=== PATIENT | female | born 1995 | race Caucasian/White ===

== ENCOUNTER 2023-03-25 00:31 | Emergency (ER) | payer OTHER ==
[~2023-03-25] VITALS: Ht 162.6 cm; Wt 61.2 kg
[2023-03-25 00:50] VITALS: BP 116/70; PULSE 93; RESP 16; TEMP 97.5; O2SAT 100
[2023-03-25 01:31] LABS: FLU A ANTIGEN negative (NEGATIVE); FLU B ANTIGEN negative (NEGATIVE)
[2023-03-25] MEDS: guaiFENesin DM 200/20 MG-10 ML 10 ML UDC PO ONE (01:55)
[2023-03-25] MEDS: ACETAMINOPHEN EXTRA STRENGTH 500 MG TAB PO ONE (01:56)
[2023-03-25] MEDS: KETOROLAC 30 MG/ML VIAL IM ONE (02:12)
== END 2023-03-25 02:27 | disposition home or self-care (01) ==
LOC: MED 00:31
DX: R05.9 Cough, unspecified (principal); Z20.822 Contact with and (suspected) exposure to COVID-19; Z79.899 Other long term (current) drug therapy
CPT/HCPCS: 81025; 87426; 87804; 96372; 99283; J1885

== ENCOUNTER 2023-06-27 10:29 | Emergency (ER) | payer MEDICAID, OTHER ==
[~2023-06-27] VITALS: Ht 162.6 cm; Wt 65.3 kg
[2023-06-27 10:41] VITALS: BP 122/73; PULSE 80; RESP 16; TEMP 96.9; O2SAT 99
[2023-06-27] MEDS ORDERED: BENZ-300 PO (11:21)
[2023-06-27] MEDS ORDERED: PRED50TA2 PO (11:21)
[2023-06-27 11:27] VITALS: BP 122/73; PULSE 80; RESP 16; TEMP 96.9; O2SAT 99
[2023-06-27 12:09] LABS: FLU A ANTIGEN negative (NEGATIVE); FLU B ANTIGEN negative (NEGATIVE)
== END 2023-06-27 11:26 | disposition home or self-care (01) ==
LOC: MED 10:29
DX: J04.0 Acute laryngitis (principal); Z20.822 Contact with and (suspected) exposure to COVID-19; Z79.899 Other long term (current) drug therapy
CPT/HCPCS: 87081; 99283